=== PATIENT | female | born 2000 | race Caucasian/White ===

== ENCOUNTER 2018-07-31 20:19 | Emergency (ER) | payer OTHER ==
[~2018-07-31] VITALS: Ht 162.6 cm; Wt 44.1 kg
[2018-07-31 20:25] VITALS: BP 105/66
[2018-07-31] MEDS ORDERED: KETOROLAC 30 MG/ML VIAL IM ONE (21:25)
[2018-07-31 22:35] VITALS: BP 119/65
== END 2018-07-31 22:35 | disposition home or self-care (01) ==
LOC: MED 20:53
DX: M25.521 Pain in right elbow (principal); W18.09XA Striking against other object with subsequent fall, initial encounter; Y93.89 Activity, other specified; Y92.099 Unspecified place in other non-institutional residence as the place of occurrence of the external cause; Y99.8 Other external cause status
CPT/HCPCS: 73080; 96372; 99284; J1885; Q0092